=== PATIENT | female | born 1965 | race Caucasian/White ===

== ENCOUNTER 2016-10-19 12:57 | Inpatient (IN) | payer BC ==
--- NOTE | 2016-10-19 13:35 | CPEKG ---
Heart Rate: 40 RR Interval: 1500 P-R Interval: 172 QRSD Interval: 76 QT Interval: 480 QTC Interval: 392 P [place]: 44 QRS [place]: 48 T Wave [place]: 33 EKG Severity - BORDERLINE ECG - EKG Impression: SINUS BRADYCARDIA EKG Impression: PROBABLE LEFT ATRIAL ABNORMALITY Electronically Signed By: Daniel Spear 21-Oct-2016 09:05:38
[2016-10-19] MEDS ORDERED: NS 1,000 ML IV ONE (13:44)
[2016-10-19] MEDS ORDERED: MECLIZINE HCL 25 MG TAB PO ONE (13:45)
[2016-10-19] MEDS ORDERED: ONDANSETRON 4 MG/2 ML VIAL IVP ONE (13:45)
--- NOTE | 2016-10-19 13:49 | EDPHY ---
H & P Time Seen by Provider: 10/19/16 13:19 HPI/ROS: CHIEF COMPLAINT: Vertigo HISTORY OF PRESENT ILLNESS: The patient is a 51-year-old female who awoke this morning with vertigo. She feels as though the room is spinning. She has had some mild double vision. Also reports a diffuse mild headache. Her symptoms are worse with head movement. The improved slightly when she lays still. She denies any neck pain. No recent head or neck trauma. No fevers or chills. No focal weakness or numbness. No chest pain or shortness of breath. Patient flew back from [place] last Thursday. REVIEW OF SYSTEMS: My complete review of systems is negative except as mentioned in the HPI. Past Medical/Surgical History: Includes , hernia repair Social history: Patient does not smoke. She is Family history: The patient's father had a CVA at 62. Smoking Status: Never smoked Physical Exam: Vitals noted GENERAL: Well-appearing, in no acute distress, alert. HEENT: Eyes normal to inspection, normal pharynx, no signs of dehydration. NECK: No thyromegaly, no lymphadenopathy, supple. RESPIRATORY: Clear to auscultation bilaterally, no rales, rhonchi or wheezing. CVS: Regular rate and rhythm, no rubs, murmurs, or gallops. ABDOMEN: Soft, nontender, nondistended, no organomegaly. BACK: Normal to inspection, no CVA tenderness. SKIN: Normal color, no rash, warm, dry. No pallor. EXTREMITIES: No pedal edema, no calf tenderness, no Homans sign or cords, no joint swelling. NEURO/PSYCH: Higher functions: Alert and Oriented x3. Normal speech and cognition. Normal mood and affect. Cranial nerves: Normal as tested. Cerebellar: Normal as tested. Good finger to nose, good [id number], normal gait. Good rapid alternating movement. Peripheral exam: Normal motor exam. Normal sensation. Constitutional: Initial Vital Signs Temperature (C) 36.6 C 10/19/16 13:01 Heart Rate 50 L 10/19/16 13:01 Respiratory Rate 18 10/19/16 13:01 Blood Pressure 132/86 H 10/19/16 13:01 O2 Sat (%) 97 10/19/16 13:01 O2 Delivery Mode Room Air Allergies/Adverse Reactions: No Known Allergies Allergy (Verified 10/19/16 13:00) Home Medications: Medication Instructions Recorded NK [No Known Home Meds] 10/19/16 Medical Decision Making - Diagnostics EKG Interpretation: Sinus bradycardia at 40. Normal axis. Normal intervals. No ST or T-wave abnormalities. Imaging Results: Imaging Impressions Head CT 10/19/16 13:44 Impression: CT scan of the head negative for hemorrhage, mass lesion or acute abnormality. Results called and discussed with MILLIE WHEAT on 10/19/2016 at 14:30 Procedures: Procedure Zachary maneuver Indication: Vertigo Patient verbally consented to the procedure. The procedure was performed typical fashion with no complication. ED Course/Re-evaluation: In the emergency department an IV was placed. Laboratory studies, EKG, head CT and MRI were ordered. I discussed the plan with the patient answered all her questions. She was given meclizine 25 mg orally. She is given Zofran 4 mg IV. She was given normal saline 1 L IV for hydration. Patient was noted to have a heart rate in the 40s. Patient states that she normally has a heart rate in the 50s. She has had a heart rate as low as the 30s before. This is been previously worked up by Cardiology. I feel is less likely that the heart rate is the cause of her vertigo. Does not seem position on my exam. She had a pressure of 132/86. I performed a Zachary maneuver at the patient's bedside. No change post Zachary maneuver. I rechecked the patient on numerous occasions while here. She was stable during her stay. On recheck she stated her dizziness had improved. She had no focal neurologic deficits on exam. MRI without contrast: Please refer the dictated report by Dr. Nitish Mantilla. The patient has a cystic lesion left occipital lobe. He recommends MRI imaging with contrast. This was ordered. I discussed the results with the patient. I answered all her questions. MRI with contrast: Please refer the dictated report by Dr. Ntiish Mantilla. The patient has numerous lesions. Dr. Mantilla's differential diagnosis is MS versus metastatic disease. The I discussed the results with the patient. I answered all her questions. I consulted Dr. Key. I discussed treatment options. Based on the patient 's presentation, mild dizziness and MRI findings patient will be admitted. I explained this to the patient and answered their questions. I spoke with Dr. Robertson to further evaluate the patient. Differential Diagnosis: Differential includes but is not limited to ischemic CVA, hemorrhagic CVA, dissection, aneurysm, labyrinthitis, Meniere's disease, bradycardia, dysrhythmia , ACS, acute [place] - Data Points Laboratory Results: Laboratory Results 10/19/16 13:25 10/19/16 13:25 10/19/16 10/19/16 13:25 13:25 WBC 6.07 10^3/uL 10^3/uL (3.80-9.50) RBC 4.35 10^6/uL 10^6/uL (4.18-5.33) Hgb 13.2 g/dL g/dL (12.6-16.3) Hct 40.4 % % (38.0-47.0) MCV 92.9 fL fL (81.5-99.8) MCH 30.3 pg pg (27.9-34.1) MCHC 32.7 g/dL g/dL (32.4-36.7) RDW 13.1 % % (11.5-15.2) Plt Count 320 10^3/uL 10^3/uL (150-400) MPV 10.0 fL fL (8.7-11.7) Neut % (Auto) 67.1 % % (39.3-74.2) Lymph % (Auto) 22.9 % % (15.0-45.0) [place] % (Auto) 8.4 % % (4.5-13.0) Eos % (Auto) 0.8 % % (0.6-7.6) Baso % (Auto) 0.5 % % (0.3-1.7) Nucleat RBC Rel Count 0.0 % % (0.0-0.2) Absolute Neuts (auto) 4.07 10^3/uL 10^3/uL (1.70-6.50) Absolute Lymphs (auto) 1.39 10^3/uL 10^3/uL (1.00-3.00) Absolute Monos (auto) 0.51 10^3/uL 10^3/uL (0.30-0.80) Absolute Eos (auto) 0.05 10^3/uL 10^3/uL (0.03-0.40) Absolute Basos (auto) 0.03 10^3/uL 10^3/uL (0.02-0.10) Absolute Nucleated RBC 0.00 10^3/uL 10^3/uL (0-0.01) Immature Gran % 0.3 % % (0.0-1.1) Immature Gran # 0.02 10^3/uL 10^3/uL (0.00-0.10) Sodium 137 mEq/L mEq/L (134-144) Potassium 4.3 mEq/L mEq/L (3.5-5.2) Chloride 106 mEq/L mEq/L (97-110) Carbon Dioxide 23 mEq/l mEq/l (22-31) Anion Gap 8 mEq/L mEq/L (8-16) BUN 19 mg/dL mg/dL (7-23) Creatinine 0.8 mg/dL mg/dL (0.6-1.0) Estimated GFR > 60 Glucose 92 mg/dL mg/dL (70-100) Calcium 9.7 mg/dL mg/dL (8.5-10.4) Troponin I < 0.012 ng/mL ng/mL (0-0.034) Medications Given: Discontinued Medications Sodium Chloride (Ns) 1,000 mls @ 0 mls/hr IV ONCE ONE; Wide Open PRN Reason: Protocol Stop: 10/19/16 13:45 Last Admin: 10/19/16 13:53 Dose: 1,000 mls Meclizine HCl (Meclizine Hcl) 25 mg PO ONCE ONE Stop: 10/19/16 13:46 Last Admin: 10/19/16 13:53 Dose: 25 mg Ondansetron HCl (Zofran) 4 mg IVP EDNOW ONE Stop: 10/19/16 13:46 Last Admin: 10/19/16 13:53 Dose: 4 mg Departure - Departure Disposition: [facility] Acute Clinical Impression: Vertigo, Bradycardia, Brain lesion Headache Qualifiers: Headache type: unspecified Headache chronicity pattern: acute headache Intractability: not intractable Qualified Code(s): R51 - Headache Condition: Good Referrals: NONE *PRIMARY CARE P,. [Primary Care Provider] - As per Instructions
[2016-10-19 13:56] LABS: % IMMATURE GRANULYOCYTES 0.3 % (0.0-1.1); ABSOLUTE IMMATURE GRANULOCYTES 0.02 10^3/uL (0.00-0.10); ADD DIFF? NO; ADD MORPH? NO; ADD SCAN? NO; ATYPICAL LYMPHOCYTE FLAG 10 (0-99); FRAGMENT RBC FLAG 0 (0-99); HEMATOCRIT 40.4 % (38.0-47.0); HEMOGLOBIN 13.2 g/dL (12.6-16.3); LEFT SHIFT FLG 0 (0-99); LIPEMIA HEMOLYSIS FLAG 80 (0-99); MEAN CELL HEMOGLOBIN 30.3 pg (27.9-34.1); MEAN CELL HEMOGLOBIN CONCENTR. 32.7 g/dL (32.4-36.7); MEAN CELL VOLUME 92.9 fL (81.5-99.8); PLATELET CLUMPS FLAG 0 (0-99); PLATELET COUNT 320 10^3/uL (150-400); RED BLOOD CELL COUNT 4.35 10^6/uL (4.18-5.33); RED CELL DISTRIBUTION WIDTH 13.1 % (11.5-15.2)
[2016-10-19 14:02] LABS: ANION GAP 8 mEq/L (8-16); CALCIUM 9.7 mg/dL (8.5-10.4); CARBON DIOXIDE 23 mEq/l (22-31); CHLORIDE 106 mEq/L (97-110); CREATININE 0.8 mg/dL (0.6-1.0); GLOMERULAR FILTRATION RATE > 60; GLUCOSE 92 mg/dL (70-100); POTASSIUM 4.3 mEq/L (3.5-5.2); SODIUM 137 mEq/L (134-144)
[2016-10-19 14:14] LABS: TROPONIN I < 0.012 ng/mL (0-0.034)
[2016-10-19] MEDS ORDERED: GADOBUTROL 10 ML VIAL IVP ONE (16:36)
[2016-10-19] MEDS ORDERED: ONDANSETRON DISINTEGRATING 4 MG TAB PO PRN (19:23)
[2016-10-19] MEDS ORDERED: ONDANSETRON 4 MG/2 ML VIAL IVP PRN (19:23)
[2016-10-19] MEDS ORDERED: MECLIZINE HCL 25 MG TAB PO PRN (19:25)
[2016-10-19] MEDS: ACETAMINOPHEN 325 MG TAB PO PRN (21:08)
[2016-10-20 05:08] LABS: HEMATOCRIT 36.8 % (38.0-47.0)
[2016-10-20] MEDS: MULTIVITAMINS 1 EACH TAB PO SCH (08:00)
[2016-10-20] MEDS: MAGNESIUM OXIDE 400 MG TAB PO SCH (08:00)
[2016-10-20] MEDS ORDERED: IOPAMIDOL (ISOVUE-300) 100 ML BTL ONE (10:15)
[2016-10-20] MEDS: ACETAMINOPHEN 325 MG TAB PO PRN ×2 (11:24→19:40)
--- NOTE | 2016-10-20 16:08 | HOSPPROG ---
Hospitalist Progress Note Assessment/Plan: this is a 51-year-old female presenting with: # vertigo (resolved) # brain MRI showing multiple enhancing lesions involving the left occipital, temporal, posterior frontal, and right parietal lobes concerning for metastatic disease plan: - I discussed case with Dr. Paulson - Await formal reads of the CT of the chest and abdomen and pelvis - oncology consult Subjective: resolved vertigo. denies recent weight loss. no fevers or chills. denies numbness or weakness Objective: Vital Signs Temp Pulse Resp BP Pulse Ox 37.1 C 56 L 15 115/74 95 10/20/16 12:53 10/20/16 12:53 10/20/16 12:53 10/20/16 12:53 10/20/16 12:53 Laboratory Results 10/20/16 04:09 10/19/16 10/20/16 10/21/16 05:59 05:59 05:59 Intake Total 1150 Balance 1150 - Physical Exam Constitutional: no apparent distress, appears nourished, not in pain Cardiovascular: regular rate and rhythym, no murmur, rub, or gallop Respiratory: no respiratory distress, no rales or rhonchi, clear to auscultation Neurologic: AAOx3, sensation intact bilaterally ICD10 Worksheet Patient Problems: Problems Problem Status Onset Incarcerated left inguinal hernia Acute Vertigo Acute Headache Acute Bradycardia Acute Brain lesion Acute
--- NOTE | 2016-10-20 19:50 | GCON ---
[f rep st] CONSULTATION DATE OF CONSULTATION: 10/20/2016 CHIEF COMPLAINT: Brain lesions. BILLING INFORMATION: 70 total minutes on the floor time today reviewing images , medical literature, previous testing, history, and in direct counseling with the patient and her . HISTORY OF PRESENT ILLNESS: This patient is a very pleasant 51-year-old lady, who has an unremarkable past medical history. She is very healthy and active. She has an excellent whole-food diet at home. No family history of malignancy or neurologic disease, including MS. She woke up Thursday morning with a sudden [id number] vertigo, which she had never had before. Because of this, she came to the emergency department, and eventually had neuroimaging, which revealed multiple ring-enhancing lesions bilaterally, at least 5 or 6 separate lesions. She has had no other systemic signs or symptoms, such as unexplained weight loss, bumps, lumps, rashes, suspicious skin lesions, bleeding, bruising, night sweats, or fevers. No infection symptoms. No infectious exposure. No travel history that is suspicious. No focal neurologic symptoms, outside of the vertigo, which resolved with medication. REVIEW OF SYSTEMS: A Ten-point review of systems was performed and nothing came up outside of the HPI. PAST MEDICAL HISTORY: None. HOME MEDICATIONS: None. ALLERGIES: No known drug allergies. PHYSICAL EXAMINATION: VITAL SIGNS: Patient is afebrile, 36.8, normal blood pressure at 113/56, heart rate 68, regular respirations 14. GENERAL: In no acute distress. Very pleasant. I saw no this subungual hemorrhages under her fingernails or other suspicious lesions at this time. NEUROLOGIC: Higher mental function normal. No aphasia. Cranial nerve exam normal 2 through 7, 11 and 12. Motor exam: Normal strength, tone, and deep tendon reflexes throughout. Sensory: Normal to light touch in all 4 extremities. Coordination : Normal in upper and lower extremities. NECK: Supple and soft. No meningismus. IMPRESSION AND PLAN: 1. Ring-enhancing brain lesions. The differential diagnosis includes malignancy, inflammatory disorder (such as acute disseminated encephalomyelitis (ADEM)), or infection, such as multiple abscesses. She has no constitutional symptoms at this time. CT of the chest and abdomen/pelvis were negative for any malignancy. She had a mammogram 2 years ago. At this point, these lesions are certainly concerning and need to be worked up as soon as possible. We will get an echocardiogram for any valvular vegetations causing septic emboli. We will also have Oncology review and evaluate the patient for any other testing they may desire for noninvasive examination. We will do a lumbar puncture in the near future as well. We will follow closely on all of the above, and make recommendations accordingly. She has no current deficits and vertigo has resolved. Thank you for this consultation. /[id number]/MODL MTDD
[2016-10-21 08:23] VITALS: O2SAT 95
[2016-10-21] MEDS: MULTIVITAMINS 1 EACH TAB PO SCH (09:01)
[2016-10-21] MEDS: MAGNESIUM OXIDE 400 MG TAB PO SCH (09:01)
[2016-10-21] MEDS: ACETAMINOPHEN 325 MG TAB PO PRN ×2 (09:01→15:47)
--- NOTE | 2016-10-21 10:25 | HOSPPROG ---
Hospitalist Progress Note Assessment/Plan: this is a 51-year-old female presenting with: # vertigo (resolved) suspect BPPV # brain MRI showing multiple enhancing lesions involving the left occipital, temporal, posterior frontal, and right parietal lobes concerning for metastatic disease #thyroid nodule #benign appearing thyroid nodule plan: - tsh, thyroid us - ct pelvis pending - oncology consult pending dispo: change to inpatient status given need for further workup. Subjective: one episode of self limiting vertigo with head turning to the right. mild headache. no other acute complaints Objective: Vital Signs Temp Pulse Resp BP Pulse Ox 36.4 C 51 L 15 129/74 H 95 10/21/16 08:00 10/21/16 08:00 10/21/16 08:00 10/21/16 08:00 10/21/16 08:00 Laboratory Results 10/20/16 04:09 10/20/16 10/21/16 10/22/16 05:59 05:59 05:59 Intake Total 1150 1000 Balance 1150 1000 - Physical Exam Constitutional: no apparent distress, appears nourished, not in pain Ears, Nose, Mouth, Throat: other (thyroid without palpable nodule) Cardiovascular: regular rate and rhythym, no murmur, rub, or gallop Respiratory: no respiratory distress, no rales or rhonchi, clear to auscultation Gastrointestinal: normoactive bowel sounds, soft, non-tender abdomen, no palpable masses ICD10 Worksheet Patient Problems: Problems Problem Status Onset Incarcerated left inguinal hernia Acute Vertigo Acute Headache Acute Bradycardia Acute Brain lesion Acute
[2016-10-21] MEDS ORDERED: LIDOCAINE 1% 300 MG/30 ML SDV ONE ×2 (12:47→17:44)
--- NOTE | 2016-10-21 14:33 | ECHO ---
[id number] + + [address] : : [place] [address] : : [phone] + + Adult Echocardiographic Report + ---------+ :Name: JACKSARAHSHELDONCassandra MAGGYParis Date: 10/21/2016 10:38 AM : : Hospital Admission Number: [id number] Grace sumner: 343: :: 1965 Gender: Female Height: 67 i n : :Age: 51 yrs Race: WH Weight: 158 lb : :Reason For Study: Question septic emboli on MRI brain : : BSA: 1.8 met ers2 : + ---------+ MMode/2D Measurements \T\ Calculations IVSd: 0.53 cm LVIDd: 5.0 cm FS: 37.8 % Ao root diam: LVPWd: 0.70 cm LVIDs: 3.1 cm EDV(Teich): 3.0 cm 115.5 ml LA dimension: ESV(Teich): 3.7 cm 37.3 ml EF(Teich): 67.7 % LVLd ap4: 8.3 cm SV(MOD-sp4): EDV(MOD-sp4): 62.0 ml 82.0 ml LVLs ap4: 6.3 cm ESV(MOD-sp4): 20.0 ml EF(MOD-sp4): 75.6 % Normal Measurement Values: + + :LVIDd (3.5-5.7cm) IVSd (0.6-1.1cm) LVPWd (0.6-1.1cm) Aortic Root (2.0-3.7cm)Left Atrium (1.5-4.0cm): :LV Vol(d) (76-115ml) LV Vol(s) (29-48ml) Ejec Fraction (50-65%)PV Paty (0.6- 1.2m/s) TV Paty (0.4-1.0m/s) : :MV E Paty (0.8-1.0m/s)MV A Paty (0.3-1.0m/s)LVOT Paty (0.7-1.2m/s) Asc Ao Paty ( 0.9-1.8m/s) : + + Doppler Measurements \T\ Calculations MV E max paty: 94.8 cm/sec Ao V2 max: 127.6 cm/sec TR max paty: 186.0 cm/sec MV A max paty: 78.0 cm/sec Ao max P.5 mmHg TR max P.8 mmHg MV E/A: 1.2 RAP systole: 5.0 mmHg RVSP(TR): 18.8 mmHg Left Ventricle The left ventricle is normal in size. There is normal left ventricular wall thickness. Left ventricular systolic function is normal. Ejection Fraction = 60-65%. No regional wall motion abnormalities noted. Right Ventricle The right ventricle is normal in size and function. Atria The left atrial size is normal. Right atrial size is normal. Mitral Valve The mitral valve is normal in structure and function. There is no evidence of mitral valve prolapse. There is no mitral valve stenosis. There is mild mitral regurgitation. Tricuspid Valve Normal tricuspid valve. There is mild tricuspid regurgitation. Aortic Valve The aortic valve is trileaflet. The aortic valve opens well. There is no aortic stenosis. There is no aortic insufficiency. Pulmonic Valve The pulmonic valve is normal in structure and function. There is no pulmonic valvular regurgitation. Great Vessels The aortic root is normal size. Pericardium/Pleural There is no pericardial effusion. Conclusion A complete two-dimensional transthoracic echocardiogram was performed (2D, M-mode, Doppler and color flow Doppler). Left ventricular systolic function is normal. Ejection Fraction = 60-65%. There is mild mitral regurgitation. There is mild tricuspid regurgitation. No obvious valvular vegetation on this study Final Reading Physician: Dr Rosangela Romero electronically signed on 10/21/2016 02:32 PM Ordering Physician: Carlos Paulson Performed By: Naty Bernal RDCS
--- NOTE | 2016-10-21 16:42 | GDS ---
[f rep st] DISCHARGE SUMMARY DISCHARGE DIAGNOSES: 1. Vertigo, possibly due to benign paroxysmal positional vertigo versus multiple enhancing lesions involving the left occipital, left temporal, left posterior frontal, and right parietal lobes. 2. Thyroid nodule, status post fine needle aspiration. 3. Benign-appearing pulmonary nodule. HOSPITAL COURSE AND STAY BY PROBLEM: Vertigo: The patient presented to the hospital with dizziness that resolved on hospital day #1. A brain MRI done on admission revealed multiple enhancing lesions involving the left occipital, left temporal, left posterior frontal, and right parietal lobes, with the largest in the left occipital subcortical white matter measuring 12 x 10 mm. Subsequently, a CT of the chest and were done. CT of the abdomen did not reveal any intraabdominal masses. The chest CT revealed a benign-appearing pulmonary nodule in the left lower lobe, as well as an indeterminate 1.0 cm hypervascular right thyroid nodule. Subsequently, a TSH was done, which was within normal range. A thyroid ultrasound was done, which met criteria for FNA , which was done on the . During this hospital, she has been seen by Dr. Leon from Oncology, as well as Dr. Carlos Paulson, who do not yet have an explanation for these possibly incidental brain lesions. Dr. Paulson did not think that this represented multiple sclerosis. An HIV antibody was done and was negative. On day of discharge a lumbar puncture has been ordered, which is currently pending. PHYSICAL EXAM ON DISCHARGE: Refer to progress note in [facility]. Brain MRI done 10/19/2016. CT of the chest and abdomen done 10/20/2016. Echocardiogram done 10/20/2016 revealed an ejection fraction of 60% to 65% with no obvious valvular vegetations. DISCHARGE MEDICATIONS: Please refer to discharge medication reconciliation in [facility] for details. DISCHARGE INSTRUCTIONS: The patient may be discharged later today with close followup with Neurology and Oncology. She will need to review the FNA results from her thyroid, as well as her CSF studies. greater than 30 minutes were spent on the discharge of this patient /[id number]/MODL MTDD
--- NOTE | 2016-10-21 16:45 | NEUROPROG ---
Assessment: 1. Ring-enhancing cerebral lesions 35 total minutes floor time; over 50% counseling regarding the patient's MRI abnormalities, treatment plan. The patient his had a CT of the chest abdomen pelvis without any evidence of primary malignancy. Thyroid ultrasound showed a nodule, this has been biopsied. Pathology is pending. I appreciate Oncology input. We again discussed differential diagnosis including inflammatory (ADEM) , malignancy (metastatic lesions, ROLL INSPECTOR lymphoma, multi centric glioma) and least likely infection as she has no other infectious signs or symptoms. We will obtain a high-volume lumbar puncture with flow cytometry and cytology. We will check normal parameters along with culture, Gram stain and cryptococcus and toxoplasmosis testing. Echocardiogram showed no valvular vegetations to suggest endocarditis with septic emboli. She has no deficits or neurologic symptoms at this time. If the CSF exam shows no significant abnormalities or signs of active infection , plan will be to discharge home in the near future with close follow-up with Oncology and MRI brain in 6 weeks with without contrast and follow-up with me afterwards. Subjective: No new symptoms Objective: Vital Signs Temp Pulse Resp BP Pulse Ox 36.4 C 60 14 135/85 H 95 10/21/16 15:42 10/21/16 15:42 10/21/16 15:42 10/21/16 15:42 10/21/16 15:42 Awake and alert No convulsive activity Allergies/Adverse Reactions: No Known Allergies Allergy (Verified 10/19/16 13:00)
--- NOTE | 2016-10-21 16:58 | GCON ---
[f rep st] CONSULTATION NEW PATIENT CONSULTATION REFERRING PHYSICIAN: Carlos Paulson MD REASON FOR CONSULTATION: Multiple enhancing lesions involving left occipital, left temporal, left posterior frontal, and right parietal lobes. HISTORY OF PRESENT ILLNESS: The patient is a 51-year-old healthy female who presented from an urgent care clinic with vertigo and some questionable neurologic signs. On admission, she had a head CT done that was negative for hemorrhage, mass, lesion, or acute abnormality. She went on to have a brain MRI that showed multiple enhancing lesions involving the left occipital, left temporal, posterior frontal, and right parietal lobes, the largest in the left occipital subcortical white matter measuring 12 x 10 mm, demonstrating peripheral ring enhancement, central cystic changes, with surrounding edema. The patient was given meclizine on arrival and anti-nausea, and her vertigo has nearly resolved. She has some mild head pressure, but no longer feels nauseated. She had a mammogram about 2 years ago, which was normal. She denies any breast mass. She has never had a colonoscopy, but denies any bleeding or change in bowel habits. She has had a skin check, and there was a mole that they were following under her left arm, but this has not changed significantly. She denies any neurologic symptoms previously. She has no family history of cancer or autoimmune diseases. She denies infections or fever, exposure to HIV or foreign travel. She denies night sweats, recurring infections, fevers or unintentional weight loss. REVIEW OF SYSTEMS: Otherwise negative as per HPI. MEDICATIONS: At home, include multivitamins. ALLERGIES: No known drug allergies. FAMILY HISTORY: Noncontributory. SOCIAL HISTORY: No tobacco, alcohol, or drugs. PHYSICAL EXAM: VITAL SIGNS: Blood pressure 129/74, pulse is 51, respiration rate 15, saturating 95% on room air. Temp is 36.4. GENERAL: Healthy, middle- aged woman not in acute distress, alert and oriented. HEENT: Anicteric sclerae. Extraocular muscles intact. Pupils equal, round, reactive to light and accommodation. Oropharynx is clear. NECK: Supple. She does have a bandage over her neck from a thyroid biopsy that was done today. HEART: Regular rate and rhythm. LUNGS: Clear to auscultation bilaterally. ABDOMEN: Soft, nontender. No enlarged spleen, no enlarged liver. LOWER EXTREMITIES: No edema. SKIN: She has an erythematous papule under the left axilla that is not concerning for melanoma. BREASTS: breast exam done bilaterally, which show no obvious breast masses or associated axillary lymphadenopathy. IMAGING: She had a CT chest, abdomen, and pelvis done to rule out evidence of metastatic disease. Her CT chest shows a smooth left lower lobe pulmonary nodule with nonaggressive features, unlikely a source of metastatic disease, 0.8 x 0.6 cm. Indeterminate 1.2 hypervascular right thyroid nodule. She then had a thyroid ultrasound showing a 1.5 x 1.1 cm thyroid nodule that was well circumscribed, hypervascular, and hypoechoic. Pathology from ultrasound-guided biopsy is pending. Her CT abdomen and pelvis showed no intraabdominal mass, lymphadenopathy, or potential source for metastatic brain disease. LABS: At this hospitalization, include a CBC that is within normal limits. Specifically, hemoglobin, hematocrit, platelet count, white blood cells normal with a normal MCV. Her C-reactive protein is less than 5.0. TSH is 2.14. Creatinine is normal at 0.8. ESR was low at 9. ASSESSMENT AND PLAN: A 51-year-old woman who presented with vertigo that is now resolved. She had a brain MRI showing multiple enhancing lesions involving left occipital, temporal, posterior frontal, and right parietal lobes. 1. Brain lesions. I have been consulted to rule out malignancy-related lesions. No evidence of abnormal findings on CT chest, abdomen, and pelvis. I do not have any abnormal findings on clinical exam. The mole under her left axilla appears benign, and she has no breast masses. She denies any change in her bowel habits suggestive of any sort of a colon cancer. I am hopeful that this may represent an inflammatory process in the brain, such as described by Dr. Carlos Paulson with Neurology. However, I do agree with lumbar puncture, and specifically would send cytology as well as flow cytometry to evaluate for any signs of malignancy or clonal process. It is possible this is central nervous system lymphoma, but definitely a strange presentation by clinical exam and imaging. Not likely to be a melanoma or thyroid or renal cell, etc., as these tend to be hemorrhagic lesions. PLAN: At this time, follow up LP. If nothing concerning, would plan reimaging in [address] Carlos Paulson does not plan any intervention if this is an atypical encephalomyelitis, as patient is not symptomatic at this time. I would tend to agree, as long as patient continues to feel well. I will hold off ordering LDH or other tumor markers until we have more evidence from the LP. The patient agrees with plan. We will continue to follow. /[id number]/MODL MTDD
[2016-10-21 17:19] LABS: INR 1.02 (0.83-1.16); PROTIME(PATIENT) 13.3 SEC (12.0-15.0)
[2016-10-21 20:01] LABS: CSF APPEARANCE CLEAR (CLEAR); CSF COLOR COLORLESS (COLORLESS); CSF SUPERNATANT COLORLESS (COLORLESS); WBC, CSF 3 /mm3 (0-5)
[2016-10-21 20:04] LABS: PROTEIN, CSF 18 mg/dL (12-60)
[2016-10-21 20:19] VITALS: BP 137/83; PULSE 57; RESP 19; TEMP 97.9
--- NOTE | 2016-10-21 20:22 | NEUROPROG ---
Assessment: 1. Ring-enhancing cerebral lesions initial CSF results - WBC 3, Protein 18 (both normal) No indication of infection or inflammation at this point. If patient feels well, no headache, after bedrest post LP - she can d/c home. She will take some tea or coffee along w/ fluids. Precautions given to patient and over the phone - of when to return to ED. Multiple tests pending, including CSF cytology and flow cytometry. Thyroid biopsy - pending. Outpatient f/u plan in place: neurology and oncology f/uy with repeat brain MRI w/ and w/o in 6 weeks. Objective: Vital Signs Temp Pulse Resp BP Pulse Ox 36.4 C 60 14 135/85 H 95 10/21/16 16:00 10/21/16 16:00 10/21/16 16:00 10/21/16 16:00 10/21/16 16:00 Microbiology 10/21/16 18:51 Gram Stain - Final Cerebral Spinal Fluid PT 13.3 SEC (12.0-15.0) 10/21/16 16:55 INR 1.02 (0.83-1.16) 10/21/16 16:55 Allergies/Adverse Reactions: No Known Allergies Allergy (Verified 10/19/16 13:00)
[2016-10-23 13:20] LABS: TOXOPLASMA IGG ANTIBODY Negative (Negative); TOXOPLASMA IGG VALUE <3 IU/mL; TOXOPLASMA IGM ANTIBODY Negative (Negative)
[2016-10-23 16:49] LABS: FINAL DIAGNOSIS See Comments; MICROSCOPIC DESCRIPTION See Comments; SPECIAL STUDIES See Comments
[2016-10-24 14:03] LABS: ALBUMIN CSF 7.1 mg/dL (<=27.0); ALBUMIN SERUM 3840 mg/dL; CSF IGG INDEX 0.65 (<=0.85); IGG CSF 1.4 mg/dL (<=8.1); IGG SERUM 1190 mg/dL (767 - 1590); IGG/ALBUMIN SERUM 0.31 (<=0.40); INTERPRETATION 4 bands (<4); OLIGOCLONAL BANDING CSF 4 bands; OLIGOCLONAL BANDING SERUM 0 bands
== END 2016-10-21 22:05 | disposition home or self-care (01) | DRG 149 ==
LOC: INTOOBSV 18:01 → F3N 18:34 → OBSVTOIN 10-21 10:26
PROVIDERS: ADMIT Internal Medicine; ATTEND Family Medicine
PROC: 009U3ZX Drainage of Spinal Canal, Percutaneous Approach, Diagnostic (ICD-10-PCS; principal; 2016-10-21)
PROC: 0GBH3ZX Excision of Right Thyroid Gland Lobe, Percutaneous Approach, Diagnostic (ICD-10-PCS; 2016-10-21)
DX: R42 Dizziness and giddiness (principal); G93.9 Disorder of brain, unspecified; E04.1 Nontoxic single thyroid nodule; R91.1 Solitary pulmonary nodule
CPT/HCPCS: 82784-90; 83916-90; 85060-90; 86777-90; 86778-90; 88184-90; 88185-91; 96374; A9585; G0378; J2405; Q9967

== ENCOUNTER → 2016-11-19 | Outpatient (CLI) | payer BC ==
[~2016-11-19] MED LIST: GADOBUTROL 10 ML VIAL IVP ONE
== END ==
LOC: FIMAGING 07:05
PROVIDERS: ATTEND Psychiatry & Neurology Neurology
DX: R42 Dizziness and giddiness (principal); G93.89 Other specified disorders of brain
CPT/HCPCS: A9585

== ENCOUNTER → 2017-09-10 | Outpatient (CLI) | payer OTHER | LOC: FIMAGING 08:30 | DX: G35 Multiple sclerosis (principal) ==